=== PATIENT | female | born 1950 | race Asian ===

== ENCOUNTER → 2017-01-25 | Outpatient (CLI) | payer MEDICARE, OTHER ==
[~2017-01-25] VITALS: Ht 157.5 cm; Wt 54.0 kg
[~2017-01-25] MED LIST: ATEN50TA PO; LOVA20 PO
[2017-01-25 13:45] VITALS: BP 118/72
== END | disposition home or self-care (01) ==
LOC: SRCNTR 13:30
PROVIDERS: ATTEND Internal Medicine Critical Care Medicine
DX: I10 Essential (primary) hypertension (principal); J47.1 Bronchiectasis with (acute) exacerbation; E78.5 Hyperlipidemia, unspecified; J18.9 Pneumonia, unspecified organism
CPT/HCPCS: G0463

== ENCOUNTER → 2017-05-02 | Outpatient (CLI) | payer MEDICARE, OTHER ==
[~2017-05-02] VITALS: Ht 157.5 cm; Wt 52.0 kg
[2017-05-02 10:35] VITALS: BP 121/55
== END | disposition home or self-care (01) ==
LOC: SRCNTR 10:00
PROVIDERS: ATTEND Internal Medicine Critical Care Medicine
DX: J47.1 Bronchiectasis with (acute) exacerbation (principal); I10 Essential (primary) hypertension; E78.5 Hyperlipidemia, unspecified
CPT/HCPCS: G0463

== ENCOUNTER → 2017-11-03 | Outpatient (CLI) | payer MEDICARE, OTHER ==
[~2017-11-03] VITALS: Ht 157.5 cm; Wt 47.0 kg
[2017-11-03 13:25] VITALS: BP 113/55
== END | disposition home or self-care (01) ==
LOC: SRCNTR 12:58
PROVIDERS: ATTEND Internal Medicine Critical Care Medicine
DX: J47.1 Bronchiectasis with (acute) exacerbation (principal); I10 Essential (primary) hypertension; E78.5 Hyperlipidemia, unspecified
CPT/HCPCS: G0463

== ENCOUNTER → 2018-11-30 | Outpatient (CLI) | payer MEDICARE, OTHER ==
[~2018-11-30] VITALS: Ht 160 cm; Wt 52.0 kg
[2018-11-30 13:41] VITALS: BP 130/64
== END | disposition home or self-care (01) ==
LOC: SRCNTR 13:32
PROVIDERS: ATTEND Internal Medicine Critical Care Medicine
DX: J47.1 Bronchiectasis with (acute) exacerbation (principal); I10 Essential (primary) hypertension; E78.5 Hyperlipidemia, unspecified
CPT/HCPCS: G0463

== ENCOUNTER → 2019-01-04 | Outpatient (CLI) | payer MEDICARE, OTHER ==
[~2019-01-04] VITALS: Ht 157.5 cm; Wt 52.5 kg
[2019-01-04 16:11] VITALS: BP 110/51
== END | disposition home or self-care (01) ==
LOC: SRCNTR 15:53
PROVIDERS: ATTEND Internal Medicine Critical Care Medicine
DX: J47.9 Bronchiectasis, uncomplicated (principal); I10 Essential (primary) hypertension; E78.5 Hyperlipidemia, unspecified
CPT/HCPCS: G0463

== ENCOUNTER → 2021-04-15 | Outpatient (CLI) | payer MEDICARE, OTHER ==
[~2021-04-15] VITALS: Ht 157.5 cm; Wt 52.1 kg
[~2021-04-15] MED LIST changes: +ATEN-72 PO; -ATEN50TA PO; -LOVA20 PO; +LOVA20TA73 PO
[2021-04-15 11:09] VITALS: BP 163/78
== END | disposition home or self-care (01) ==
LOC: SRCNTR 10:24
PROVIDERS: ATTEND Internal Medicine Critical Care Medicine
DX: J47.1 Bronchiectasis with (acute) exacerbation (principal); I10 Essential (primary) hypertension; E78.5 Hyperlipidemia, unspecified; R09.82 Postnasal drip; J06.9 Acute upper respiratory infection, unspecified; Z79.899 Other long term (current) drug therapy
CPT/HCPCS: G0463; Z7500

== ENCOUNTER → 2021-05-19 | Outpatient (CLI) | payer MEDICARE, OTHER ==
[~2021-05-19] VITALS: Ht 208.3 cm; Wt 52.4 kg
[2021-05-19 10:31] VITALS: BP 157/73
== END | disposition home or self-care (01) ==
LOC: SRCNTR 10:12
PROVIDERS: ATTEND Internal Medicine Critical Care Medicine
DX: J47.1 Bronchiectasis with (acute) exacerbation (principal); I10 Essential (primary) hypertension; E78.5 Hyperlipidemia, unspecified; J06.9 Acute upper respiratory infection, unspecified; R09.82 Postnasal drip; Z79.899 Other long term (current) drug therapy
CPT/HCPCS: G0463

== ENCOUNTER → 2022-07-04 | Outpatient (CLI) | payer MEDICARE, OTHER | END | disposition home or self-care (01) | LOC: SRCNTR 10:38 | PROVIDERS: ATTEND Internal Medicine Critical Care Medicine | DX: J47.1 Bronchiectasis with (acute) exacerbation (principal); J06.9 Acute upper respiratory infection, unspecified; I10 Essential (primary) hypertension; E78.5 Hyperlipidemia, unspecified; R09.82 Postnasal drip; Z79.899 Other long term (current) drug therapy | CPT/HCPCS: G0463 ==

== ENCOUNTER → 2023-10-13 | Outpatient (CLI) | payer MEDICARE, OTHER ==
[~2023-10-13] VITALS: Ht 157.5 cm; Wt 43.0 kg
[2023-10-13 11:34] VITALS: BP 136/70; PULSE 94; RESP 24; TEMP 98.9; O2SAT 96
== END | disposition home or self-care (01) ==
LOC: SRCNTR 11:12
PROVIDERS: ATTEND Internal Medicine Pulmonary Disease
DX: J47.1 Bronchiectasis with (acute) exacerbation (principal); I10 Essential (primary) hypertension; E78.5 Hyperlipidemia, unspecified; R09.82 Postnasal drip
CPT/HCPCS: G0463; Z7500

== ENCOUNTER → 2024-11-07 | Outpatient (CLI) | payer MEDICARE, OTHER ==
[~2024-11-07] VITALS: Ht 157.5 cm; Wt 41.0 kg
[2024-11-07 12:43] VITALS: BP 122/56; PULSE 92; RESP 16; TEMP 99.8; O2SAT 95
== END | disposition home or self-care (01) ==
LOC: SRCNTR 12:18
PROVIDERS: ATTEND Internal Medicine Pulmonary Disease
DX: I10 Essential (primary) hypertension (principal); E78.5 Hyperlipidemia, unspecified; J47.1 Bronchiectasis with (acute) exacerbation; K21.9 Gastro-esophageal reflux disease without esophagitis; Z20.822 Contact with and (suspected) exposure to COVID-19; Z79.899 Other long term (current) drug therapy; Z98.890 Other specified postprocedural states
CPT/HCPCS: G0463; Z7500